=== PATIENT | female | born 1965 | race Caucasian/White ===

== ENCOUNTER 2016-12-08 21:14 | Emergency (ER) | payer OTHER, MEDICARE ==
[2016-12-08 21:37] LABS: BASOPHIL 0.5 % (0-2); EOSINOPHIL 2.9 % (0-5); HCT 40.2 % (37.0-47.0); HGB 13.6 g/dl (12.5-16.0); MCH 31.7 pg (25.0-31.0); MCHC 33.8 g/dL (32.0-36.0); MCV 93.7 fL (78.0-100.0); MONOCYTE 7.6 % (0-12); MPV 12.2 fL (6.0-9.5); PLT 214 K/uL (150-400); RBC 4.29 M/uL (4.20-5.40); RDW 13.2 % (11.5-14.0); WBC 9.4 K/uL (4.0-10.5)
[2016-12-08 21:48] LABS: INR 0.94 (0.9-1.2); PROTHROMBIN TIME 12.2 SECONDS (11.7-14.0); PTT 29.8 SECONDS (23.2-31.4)
[2016-12-08 21:59] LABS: ALBUMIN 4.2 g/dL (3.5-5.0); BILIRUBIN - TOTAL 0.2 mg/dL (0.1-1.0); CKMB 4.38 ng/mL (0.97-4.94); GLOBULIN (CALCULATION) 2.4 g/dL (2.2-4.2); MAGNESIUM 1.93 mg/dL (1.40-2.10); MYOGLOBIN 49 ng/mL (26-65); POTASSIUM 4.1 mmol/L (3.5-5.1); TOTAL PROTEIN 6.6 g/dL (6.4-8.3); TROPONIN T < 0.010 ng/mL
[2016-12-08 22:05] LABS: PRO-BNP 232 pg/mL (0-125)
== END 2016-12-08 23:35 | disposition left against medical advice (07) ==
LOC: FER 21:14
PROVIDERS: Emergency Medicine
DX: R07.89 Other chest pain (principal); R11.0 Nausea; M54.9 Dorsalgia, unspecified; I10 Essential (primary) hypertension; E78.5 Hyperlipidemia, unspecified; K21.9 Gastro-esophageal reflux disease without esophagitis; Z79.899 Other long term (current) drug therapy; F17.210 Nicotine dependence, cigarettes, uncomplicated; Z82.49 Family history of ischemic heart disease and other diseases of the circulatory system
CPT/HCPCS: 36415; 71010; 80053; 82550; 82553; 83735; 83874; 83880; 84484; 85025; 85610; 85730; 93005